=== PATIENT | female | born 1975 | race Caucasian/White ===

== ENCOUNTER 2018-03-22 05:35 | Inpatient (IN) | payer BC ==
[~2018-03-22] VITALS: Ht 162.6 cm; Wt 61.0 kg
[~2018-03-22 05:35] MED LIST: NO MEDS; TRAMADL/APAP PO
[2018-03-22 06:17] LABS: HEMATOCRIT 41.2 % (37.0-47.0); IMMATURE GRANULOCYTES 0.6 % (0.0-5.0); MEAN CELL VOLUME 95.4 fL CALC (80.0-100.0); MEAN CORPUSCULAR HGB 32.4 pG CALC (26.0-32.0); NEUT# 26.44 thou/uL (2.00-7.15); RED BLOOD COUNT 4.32 mill/uL (4.20-5.60); RED CELL DISTRI WIDTH 12.3 % (11.5-15.5)
[2018-03-22 06:18] LABS: URINE BLOOD DIPSTICK LARGE (NEGATIVE); URINE COLOR YELLOW; URINE GLUCOSE - DIPSTICK NEGATIVE (NEGATIVE); URINE KETONE TRACE mg/dL (NEGATIVE); URINE NITRITE - DIPSTICK NEGATIVE (Negative); URINE PH 8.5 (4.5-8.0); URINE PROTEIN - DIPSTICK 100 mg/dL (NEG-TRACE)
[2018-03-22 06:23] LABS: URINE LEUK ESTERASE MODERATE (NEGATIVE)
[2018-03-22 06:25] LABS: URINE BILIRUBIN - DIPSTICK NEGATIVE (NEGATIVE)
[2018-03-22 06:29] LABS: ALBUMIN 4.1 g/dL (3.2-5.0); BILIRUBIN, TOTAL 0.9 mg/dL (0.0-1.4); CREATININE 1.3 mg/dL (0.5-1.0); POTASSIUM 4.5 mmol/l (3.5-5.1); TOTAL PROTEIN 7.6 g/dL (6.3-8.2)
[2018-03-22 06:29] LABS: URINE BACTERIA MODERATE hpf; URINE SQUAMOUS EPITHELIAL CELL FEW EPI/hpf (0-FEW); URINE WBC TNTC WBC/hpf (0-5)
[2018-03-22 11:48] VITALS: BP 93/62
[2018-03-22 15:23] VITALS: BP 96/52
[2018-03-22 19:05] VITALS: BP 95/61
[2018-03-23 04:05] VITALS: BP 91/57
[2018-03-23 04:43] LABS: ALKALINE PHOSPHATASE 46 u/l (38-126); AMYLASE < 30 u/l (30-110); ANION GAP 10 (6-22 (CALC)); BILIRUBIN, TOTAL 0.9 mg/dL (0.0-1.4); BUN 10 mg/dL (7-17); BUN/CREATININE RATIO 8 (12-20 (CALC)); CARBON DIOXIDE 22 mmol/l (22-30); CHLORIDE 108 mmol/l (95-108); CREATININE 1.2 mg/dL (0.5-1.0); GFR 49 ML/MIN (>=60 (CALC)); GFR FOR AFR.AMER. 59 ML/MIN (>=60 (CALC)); LIPASE 24 u/l (23-300); MAGNESIUM 1.5 mg/dL (1.6-2.3); POTASSIUM 4.2 mmol/l (3.5-5.1); SGOT/AST 32 u/l (14-36); SODIUM 136 mmol/l (137-146)
[2018-03-23 04:52] LABS: ALBUMIN 2.7 g/dL (3.2-5.0); TOTAL PROTEIN 5.3 g/dL (6.3-8.2)
[2018-03-23 05:01] LABS: IMMATURE GRANULOCYTES 0.7 % (0.0-5.0); MEAN CELL VOLUME 97.2 fL CALC (80.0-100.0); MEAN CORPUSCULAR HGB 32.2 pG CALC (26.0-32.0); MEAN CORPUSCULAR HGB CONC 33.1 g/L CALC (32.0-36.0); NEUT# 17.69 thou/uL (2.00-7.15); RED BLOOD COUNT 3.57 mill/uL (4.20-5.60); RED CELL DISTRI WIDTH 12.6 % (11.5-15.5)
[2018-03-23 05:13] LABS: HEMATOCRIT 34.7 % (37.0-47.0); HEMOGLOBIN 11.5 g/dl (12.0-16.0)
[2018-03-23 07:52] VITALS: BP 88/59
[2018-03-23 11:18] VITALS: BP 101/79
[2018-03-23 15:37] VITALS: BP 108/60
[2018-03-23 19:05] VITALS: BP 97/54
[2018-03-24 04:10] VITALS: BP 119/79
[2018-03-24 05:23] LABS: HEMATOCRIT 33.8 % (37.0-47.0); HEMOGLOBIN 11.2 g/dl (12.0-16.0); IMMATURE GRANULOCYTES 0.5 % (0.0-5.0); MEAN CELL VOLUME 95.8 fL CALC (80.0-100.0); MEAN CORPUSCULAR HGB 31.7 pG CALC (26.0-32.0); MEAN CORPUSCULAR HGB CONC 33.1 g/L CALC (32.0-36.0); NEUT# 13.28 thou/uL (2.00-7.15); RED BLOOD COUNT 3.53 mill/uL (4.20-5.60); RED CELL DISTRI WIDTH 12.6 % (11.5-15.5)
[2018-03-24 05:53] LABS: ALBUMIN 2.7 g/dL (3.2-5.0); ALKALINE PHOSPHATASE 47 u/l (38-126); ANION GAP 11 (6-22 (CALC)); BUN 8 mg/dL (7-17); BUN/CREATININE RATIO 8 (12-20 (CALC)); CARBON DIOXIDE 20 mmol/l (22-30); CHLORIDE 110 mmol/l (95-108); GFR 60 ML/MIN (>=60 (CALC)); GFR FOR AFR.AMER. > 60 ML/MIN (>=60 (CALC)); POTASSIUM 4.2 mmol/l (3.5-5.1); SGOT/AST 27 u/l (14-36); SODIUM 137 mmol/l (137-146); TOTAL PROTEIN 5.3 g/dL (6.3-8.2)
[2018-03-24 08:01] VITALS: BP 136/86
[2018-03-24 15:22] VITALS: BP 117/74
[2018-03-24 19:06] VITALS: BP 132/93
[2018-03-25 04:13] VITALS: BP 118/73
[2018-03-25 05:09] LABS: HEMATOCRIT 32.2 % (37.0-47.0); HEMOGLOBIN 10.9 g/dl (12.0-16.0); IMMATURE GRANULOCYTES 0.7 % (0.0-5.0); MEAN CELL VOLUME 94.7 fL CALC (80.0-100.0); MEAN CORPUSCULAR HGB 32.1 pG CALC (26.0-32.0); MEAN CORPUSCULAR HGB CONC 33.9 g/L CALC (32.0-36.0); NEUT# 10.21 thou/uL (2.00-7.15); RED BLOOD COUNT 3.4 mill/uL (4.20-5.60); RED CELL DISTRI WIDTH 12.5 % (11.5-15.5)
[2018-03-25 05:27] LABS: ANION GAP 12 (6-22 (CALC)); BUN 9 mg/dL (7-17); BUN/CREATININE RATIO 10 (12-20 (CALC)); CARBON DIOXIDE 19 mmol/l (22-30); CHLORIDE 112 mmol/l (95-108); CREATININE 0.9 mg/dL (0.5-1.0); GFR > 60 ML/MIN (>=60 (CALC)); GFR FOR AFR.AMER. > 60 ML/MIN (>=60 (CALC)); MAGNESIUM 1.8 mg/dL (1.6-2.3); POTASSIUM 4.4 mmol/l (3.5-5.1); SODIUM 138 mmol/l (137-146)
[2018-03-25 07:36] VITALS: BP 131/74
[2018-03-25 16:02] VITALS: BP 150/89
[2018-03-25 20:15] VITALS: BP 148/88
[2018-03-26 04:15] VITALS: BP 128/77
[2018-03-26 08:35] VITALS: BP 162/85
[2018-03-26] MEDS ORDERED: ROCEPHIN 2 GM2 GM IV (13:45)
[2018-03-26] MEDS ORDERED: TRAMADOL HCL50 MG PO (14:24)
== END 2018-03-26 14:38 | disposition home or self-care (01) | DRG 872 ==
LOC: ED 05:35 → ED-I 06:00 → ED 06:00 → ED-I 09:18 → ED 09:41 → MS2 09:42
PROVIDERS: Emergency Medicine; Nurse Practitioner Family; ADMIT Internal Medicine Nephrology; ATTEND Internal Medicine
PROC: 0T903ZZ Drainage of Right Kidney, Percutaneous Approach (ICD-10-PCS; principal; 2018-03-22)
PROC: 02HV33Z Insertion of Infusion Device into Superior Vena Cava, Percutaneous Approach (ICD-10-PCS; 2018-03-25)
PROC: B518ZZA Fluoroscopy of Superior Vena Cava, Guidance (ICD-10-PCS; 2018-03-25)
DX: A41.51 Sepsis due to Escherichia coli [E. coli] (principal); N17.9 Acute kidney failure, unspecified; N20.0 Calculus of kidney; R65.20 Severe sepsis without septic shock; N28.1 Cyst of kidney, acquired; R73.9 Hyperglycemia, unspecified; Z87.442 Personal history of urinary calculi
CPT/HCPCS: J1650; J1956; J3475; Q9967

== ENCOUNTER 2018-03-31 11:08 | Outpatient (RCR) | payer BC ==
[2018-03-27 15:21] VITALS: BP 159/98
[2018-03-28 15:04] VITALS: BP 140/86
[2018-03-29 14:20] VITALS: BP 138/82
[2018-03-30 11:14] VITALS: BP 120/60
[~2018-03-31] VITALS: Ht 162.6 cm; Wt 61.2 kg
[~2018-03-31 11:08] MED LIST changes: +ROCEPHIN 2 GM2 GM IV; +TRAMADOL HCL50 MG PO
[2018-03-31 11:10] VITALS: BP 122/64
== END 2018-03-31 13:00 | disposition home or self-care (01) | DRG 690 ==
LOC: INF 11:08
PROVIDERS: ATTEND Internal Medicine Nephrology
DX: N15.1 Renal and perinephric abscess (principal); N12 Tubulo-interstitial nephritis, not specified as acute or chronic